=== PATIENT | female | born 1955 | race Caucasian/White ===

== ENCOUNTER → 2023-04-22 10:06 | Outpatient (CLI) | payer MEDICARE, OTHER, SELFPAY ==
[2023-04-22 20:00] LABS: Alanine Aminotransferase 33 IU/L (<35); Albumin 4.5 g/dL (3.5-5.0); Albumin Globulin Ratio 1.3 (1.0-2.8); Alkaline Phosphatase 52 U/L (38-126); Aspartate Aminotransferase 30 IU/L (14-36); BUN Creatinine Ratio 13.2 (6-22); Bilirubin Total 0.9 mg/dL (0.2-1.3); Blood Urea Nitrogen 10 mg/dL (7-17); Calcium 10.2 mg/dL (8.4-10.2); Carbon Dioxide 27 mmol/L (22-32); Chloride 101 mmol/L (98-107); Cholesterol 223 mg/dL (140-199); Estimated Glomerular Filt Rate > 60 mL/min (>60); Globulin 3.6 g/dL (1.7-4.1); Glucose 95 mg/dL (80-110); HDL Cholesterol 48 mg/dL (40-60); HEMOLYSIS < 15 (0-50); LDL Cholesterol Calculated 153 mg/dL (<100); Potassium 4.3 mmol/L (3.4-5.1); Sodium 138 mmol/L (137-145); Total Protein 8.1 g/dL (6.3-8.2); Triglycerides 109 mg/dL (35-150)
[2023-04-22 20:16] LABS: Free T4, Direct Thyroxine 1.14 ng/dL (0.78-2.19)
[2023-04-22 20:29] LABS: Thyroid Stimulating Hormone 0.791 uIU/mL (0.47-4.68)
== END ==
PROVIDERS: PCP Family Medicine; Visit Provider Family Medicine
DX: Z79.899 Other long term (current) drug therapy (principal); E03.9 Hypothyroidism, unspecified; Z13.6 Encounter for screening for cardiovascular disorders; Z13.1 Encounter for screening for diabetes mellitus
CPT/HCPCS: 80053; 80061; 84439; 84443; 84481

== ENCOUNTER → 2023-05-29 14:07 | Outpatient (CLI) | payer MEDICARE, OTHER, SELFPAY ==
--- NOTE | 2023-05-29 14:10 | DI.RAD.S_ITS ---
Bone Density Report Name: DRU LOPEZ Age: 68 Sex: Female Ethnicity: White Date of : 1955 Indication: postmenopausal; screening for osteoporosis; Referring Provider: DRU ROSADO Study: Bone densitometry was performed. Exam Date: May 29, 2023 Accession number: [id number] Bone Density: Region BMD T-score Z-score Classification AP Spine(L1, L2, L3) 0.961 -0.5 1.5 Normal Femoral Neck (Left) 0.680 -1.5 0.2 Osteopenia Total Hip (Left) 0.831 -0.9 0.5 Normal Femoral Neck (Right) 0.769 -0.7 1.0 Normal Total Hip (Right) 0.856 -0.7 0.8 Normal Total Hip Mean 0.844 -0.8 0.7 Normal World Health Organization criteria for BMD impression classify patients as: Normal (T-score at or above -1.0), Osteopenia (T-score between -1.0 and -2.5), or Osteoporosis (T-score at or below -2.5). 10-year Fracture Risk(1): Major Osteoporotic Fracture 9.7% Hip Fracture 1.3% Reported Risk Factors: [place] (), Neck BMD=0.680, BMI=28.3 (1) FRAX(R) Version 3.08. Fracture probability calculated for an untreated patient. Fracture probability may be lower if the patient has received treatment. Impression: The patient has low bone mass, based on the Left Femoral Neck T-score. The patient has an estimated ten-year risk of hip fracture of 1.3% and an estimated ten-year risk of major fracture of 9.7%, based on the WHO FRAX algorithm. Discussion: BONE DENSITY IS LOW AT ONE OR MORE SKELETAL SITES. This patient's lowest T-score is low at one or more skeletal sites. It meets the World Health Organization's (WHO) criteria for low bone mass (T-score between -1.0 and -2.5). The patient's 10-year risk of fracture as calculated by FRAX is less than the threshold where pharmacological therapy is recommended by the National Osteoporosis Foundation (NOF). However, all treatment decisions require clinical judgment and consideration of individual patient factors, including patient preferences, comorbidities, previous drug use, risk factors not captured in the FRAX model (e.g., frailty, falls, vitamin D deficiency, increased bone turnover, interval significant decline in bone density) and possible under or overestimation of fracture risk by FRAX. The patient should follow a healthful lifestyle (good nutrition with adequate calcium and vitamin D, and appropriate weight-bearing exercise). Follow-Up: Consider repeating this study in 2 to 3 years to reassess this patient's status, or sooner if there is some new clinical indication. Reported by: JASWANT SALAS MD on 05/29/2023 2:35:00 PM.
--- NOTE | 2023-05-29 14:10 | DI.MG.S_ITS ---
BILATERAL DIGITAL SCREENING MAMMOGRAM 3D/2D WITH CAD: 05/29/2023 CLINICAL: Routine screening. Default Baseline exam. No prior exams were available for comparison. Both breasts are heterogeneously dense, which may obscure small masses (category c / 51-75% glandular tissue). Current study was also evaluated with a Computer Aided Detection (CAD) system. There is a benign intramammary node in the left breast. No significant masses, calcifications, or other findings are seen in either breast. IMPRESSION: BENIGN There is no mammographic evidence of malignancy. A 1 year screening mammogram is recommended. Based on the Tyrer Cuzick model (a risk assessment model) the patient's lifetime risk is 6.3% and her 10 year risk is 3.7%. According to the ACR, ACS, and NCCN guidelines, an annual breast MRI exam along with mammogram is recommended if the patient's lifetime risk is 20% or greater. This exam was interpreted at Station ID: [id number]. NOTE: For mammograms, a report in lay terms will be sent to the patient. Approximately 15% of breast malignancies will not be visualized mammographically. In the management of a palpable breast mass, a negative mammogram must not discourage biopsy of a clinically suspicious lesion. Electronically Signed By: Cristino silverman/stevie:05/29/2023 17:53:04 letter sent: Normal Exam ACR BI-RADS Category 2: Benign Finding(s) 3342F
== END ==
PROVIDERS: PCP Family Medicine; Referring Provider Family Medicine; Visit Provider Family Medicine
DX: Z12.31 Encounter for screening mammogram for malignant neoplasm of breast (principal); Z78.0 Asymptomatic menopausal state; M85.852 Other specified disorders of bone density and structure, left thigh
CPT/HCPCS: 77063; 77067; 77080

== ENCOUNTER 2023-05-30 09:54 | Day surgery (SDC) | payer MEDICARE, OTHER, SELFPAY ==
[2023-05-30 10:13] VITALS: BP 120/75; PULSE 70; RESP 18; TEMP 36.8; O2SAT 99; BMI 28.3
[2023-05-30] MEDS: LACTATED RINGERS 1,000 ML 84 ML IV (10:22)
--- NOTE | 2023-05-30 10:43 | P.HP_ITS ---
History of Present Illness History of Present Illness Date Patient Seen: 05/30/23 Time Patient Seen: 10:43 Chief complaint: SDC Narrative: Casandra is a 68-year-old woman who is here for colonoscopy. Her last one she thinks was about 10 years ago and she does not believe polyps were removed. No family history of colon cancer. PFSH Medical History (Updated 04/08/23 @ 21:01 by Faby Zayas) Postmenopausal HRT (hormone replacement therapy) Osteopenia Hypothyroid Surgical History (Updated 04/08/23 @ 21:01 by Faby Zayas) Anesthesia History of dental surgery No history of previous surgery Family History (Updated 04/08/23 @ 21:03 by Faby Zayas) Father COPD (chronic obstructive pulmonary disease) Mother Stroke Sister Stroke Social History household members: spouse Smoking Status: Never smoker additional social history: has been seeing doctor in [place] [facility] and thyroid. Dr. Alfreda VERA thyroid -- 5 yrs at same dose PMX: no medical problems except thyroid PSHX: none ALL: no meds MEDS: life extension: 12 pills per day. + fish oil and vitamin D. tob: none etoh: rarely SHX: lived here for 1 yr. in November. 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 FHX: mom's family: ALZ (but mom did not have no cancer, no [place] jsm 03/2023 Meds Home Medications and Allergies Home Medications Medication Instructions Recorded Confirmed Type thyroid (pork) 120 mg tablet ([employer] 120 mg PO DAILY 03/14/23 05/30/23 History Thyroid) Allergies Allergy/AdvReac Type Severity Reaction Status Date / Time No Known Drug Allergies Allergy Verified 05/30/23 10:12 Exam Vital Signs (past 8 hours): - 05/30/23 10:13 Temperature 98.2 F Pulse Rate 70 Respiratory Rate 18 Blood Pressure 120/75 Pulse Oximetry 99 Oxygen Delivery Method Room Air Oxygen Delivery Method Room Air Const General: No acute distress Resp Effort & Inspection: normal respiratory effort Assessment & Plan Assessment and plan (1) Colon cancer screening: Status: Acute Plan We reviewed the risks and benefits of colonoscopy for colon cancer screening and she would like to proceed.
--- NOTE | 2023-05-30 11:15 | PM.OP.COLON ---
Operative Date/Time/Diagnoses Date of procedure: 05/30/23 Time of procedure: 11:15 Pre-op diagnosis: Colon cancer screening Post-op diagnosis: same Procedure & Clinicians Study performed: Colonoscopy Same procedure as scheduled: Yes Surgeon: Srikanth White Procedure Notes Procedure in detail: Surgeon: Srikanth White MD Anesthesia: Gladis Connor DO Procedure: The patient was brought to the endoscopy suite, placed in left lateral decubitus position. The patient was connected to monitoring devices. A time-out was performed. Sedation was administered. Once the patient was adequately sedated, a digital rectal exam was performed and was normal. The scope was then inserted and advanced to the cecum where the appendiceal orifice was identified and photographed. The scope was then slowly withdrawn over greater than 6 minutes. The mucosa was thoroughly inspected. No abnormalities were found. The scope was retroflexed in the rectum. No other abnormalities were found. The scope was straightened and removed. The patient was awakened and brought to recovery. Scope withdrawal time: 7 minutes Sedation time: 15 minutes EBL: 0 Findings: Normal colon Post-procedure Recommendations: Colonoscopy in 10 years Disposition: PACU
[2023-05-30 11:16] VITALS: BP 95/51; PULSE 61; RESP 22; TEMP 36.2; O2SAT 98
[2023-05-30 11:21] VITALS: BP 93/61; PULSE 63; RESP 16; O2SAT 99
[2023-05-30 11:26] VITALS: BP 109/72; BP 110/71; PULSE 50; PULSE 58; RESP 12; RESP 24; O2SAT 98; O2SAT 99
[2023-05-30 11:38] VITALS: BP 120/67; PULSE 51; RESP 12; TEMP 36.1; O2SAT 99
== END 2023-05-30 11:47 | disposition home or self-care (01) ==
PROVIDERS: PCP Family Medicine; Referring Provider Surgery; Visit Provider Surgery
PROC: 0DJD8ZZ Inspection of Lower Intestinal Tract, Via Natural or Artificial Opening Endoscopic (ICD-10-PCS; CPT 45378; principal; 2023-05-30 11:00)
DX: Z12.11 Encounter for screening for malignant neoplasm of colon (principal)
CPT/HCPCS: G0121; J2704

== ENCOUNTER → 2023-10-09 13:43 | Outpatient (CLI) | payer MEDICARE, OTHER, SELFPAY ==
--- NOTE | 2023-10-09 13:47 | DI.MRI.S_ITS ---
PROCEDURE: MR HEAD/BRAIN WO CON INDICATIONS: dizziness, balance problem TECHNIQUE: Non-contrast axial T1 spin echo, axial T2 fast spin echo, sagittal and axial FLAIR, coronal T2 fast spin echo, axial gradient echo, axial diffusion and ADC through the brain. COMPARISON: None. FINDINGS: Image quality: Excellent. CSF spaces: Ventricles appear symmetric in size and shape. Basal cisterns are patent. No extra-axial fluid collections. Brain: No intracranial bleeds or mass effects. There is cerebral volume loss for age. There are periventricular and deep white matter chronic small vessel ischemic changes as well as in the brainstem. Brainstem appears normal. Diffusion-weighted images show no acute infarct. No chronic ischemic insults. Normal intravascular flow voids are present. Skull and face: Calvarial bone marrow is normal in signal. Orbits are normal. Sinuses: Sinuses and mastoids are clear. IMPRESSION: No cause for patient's symptoms is identified. No acute intracranial abnormalities. Age-related global volume loss and chronic microvascular ischemic changes. Dictated by: Levar Eaton M.D. on 10/09/2023 at 15:52 Approved by: Levar Eaton M.D. on 10/09/2023 at 15:54
== END ==
PROVIDERS: PCP Family Medicine; Referring Provider Family Medicine; Visit Provider Family Medicine
DX: R42 Dizziness and giddiness (principal); R26.89 Other abnormalities of gait and mobility
CPT/HCPCS: 70551

== ENCOUNTER 2024-03-24 09:01 | Day surgery (SDC) | payer MEDICARE, OTHER, SELFPAY ==
[2024-03-23 12:02] VITALS: BMI 29.9
[2024-03-24] VITALS (7 sets, daily range): BP systolic 113–148; BP diastolic 69–86; PULSE 65–94; RESP 10–18; TEMP 36.1–36.7; O2SAT 94–97; BMI 29.1
[2024-03-24] MEDS: LACTATED RINGERS 1,000 ML 42 ML IV (09:31)
--- NOTE | 2024-03-24 09:59 | PM.PREOP ---
Pre-operative Note Interval Note History & Physical reviewed/Exam performed by Physician: Yes Changes to H&P: No H&P completed within 30 days and has changed as indicated here:: some rotational deformity with some cross over, plan for closed reduction and pinning
--- NOTE | 2024-03-24 10:00 | P.OP_ITS ---
Operative Date/Time/Diagnoses Date of procedure: 03/24/24 Time of procedure: 10:20 Pre-op diagnosis: Right 5th metacarpal base fracture with deformity Post-op diagnosis: same Procedure & Clinicians Procedure: Closed reduction and pinning right 5th metacarpal base fracture Same procedure as scheduled: Yes Indications: This is a 69-year-old female who fell while taking out the garbage and injured her right hand. She was seen in the emergency room. Her x-rays showed a displaced right 5th metacarpal fracture. He was brought the operating room for closed reduction and pinning because she had rotatory deformity with some component of crossover. Procedure options risks benefits and complications discussed. Surgeon: Joanie Zhu Click Yes if Unassisted: Yes Anesthesia Type: General Operative Notes Findings: Acceptable reduction and improved alignment. Closure Type: primary Specimen(s): none sent Prosthetic devices, grafts, tissues, transplants, or devices: 0.62 K-wire Blood products transfused: none Procedure in detail: Patient was brought to the operating room she underwent the induction of general anesthesia. A time-out was performed. Patient's right upper extremity was prepped draped standard sterile fashion. She was given IV Ancef. She underwent a reduction maneuver with longitudinal traction and correction of her fracture malreduction. The metacarpal was then stabilized with one 0.62 K-wire. I s pecifically work to try and improve her rotatory malalignment. I was able to restore some of the length. The pin was cut and bent. Marcaine was injected. Patient was placed in a ulnar gutter splint after dressing the pin wound sterilely. Complications: none Post-operative Condition: stable Disposition: Acute Care Plan for aftercare: Return to clinic in 3 weeks for x-rays out of splint and possible pin removal.
[2024-03-24] MEDS: CEFAZOLIN 2 GM/100 ML PREMIX 100 ML IV (10:41)
--- NOTE | 2024-03-24 10:58 | SUR.OPER ---
Supine on padded OR bed, head on pillow, arms secured on padded arm boards at <90 degrees abduction, legs uncrossed, safety belt at thigh, tape over blanket over lower legs.
[2024-03-24] MEDS: BUPIVACAINE 0.5% (PF) 30 ML, EPINEPHrine 0.15 MG INJ (11:08)
== END 2024-03-24 12:05 | disposition home or self-care (01) ==
PROVIDERS: PCP Family Medicine; Referring Provider Orthopaedic Surgery; Visit Provider Orthopaedic Surgery
PROC: (CPT 26608; principal; 2024-03-24 10:45)
DX: S62.316A Displaced fracture of base of fifth metacarpal bone, right hand, initial encounter for closed fracture (principal); W01.0XXA Fall on same level from slipping, tripping and stumbling without subsequent striking against object, initial encounter; Y93.E9 Activity, other interior property and clothing maintenance
CPT/HCPCS: 26608; J0171; J0690; J2405; J2704; J3010